=== PATIENT | male | born 1995 | race Caucasian/White ===

== ENCOUNTER → 2017-02-13 | Emergency (ER) | payer MEDICAID ==
[~2017-02-13] VITALS: Ht 180.3 cm; Wt 81.8 kg
[2017-02-13 04:35] VITALS: BP 115/69
== END | disposition home or self-care (01) ==
LOC: ER 04:08
DX: R07.89 Other chest pain (principal); J45.909 Unspecified asthma, uncomplicated; F12.10 Cannabis abuse, uncomplicated
CPT/HCPCS: 93005; 99283

== ENCOUNTER 2021-11-19 09:28 | Emergency (ER) | payer MEDICAID ==
[~2021-11-19] VITALS: Ht 180.3 cm; Wt 92.7 kg
[2021-11-19 09:42] VITALS: BP 137/82
[2021-11-19] MEDS ORDERED: IBUP-1986 PO (12:19)
[2021-11-19] MEDS ORDERED: ibuprofen tablet 400 MG TABLET PO ONE (12:25)
== END 2021-11-19 12:58 | disposition home or self-care (01) ==
LOC: ER 09:29
DX: S90.01XA Contusion of right ankle, initial encounter (principal); J45.909 Unspecified asthma, uncomplicated; F12.10 Cannabis abuse, uncomplicated; X50.0XXA Overexertion from strenuous movement or load, initial encounter; Y93.89 Activity, other specified; Y92.89 Other specified places as the place of occurrence of the external cause; Y99.8 Other external cause status
CPT/HCPCS: 29515; 73610; 99284; L1930; L4360